=== PATIENT | male | born 1985 | race Caucasian/White ===

== ENCOUNTER 2025-06-10 15:35 | Emergency (ER) | payer OTHER, SELFPAY ==
[2025-06-10 15:43] VITALS: BP 132/73; PULSE 70; RESP 16; TEMP 36.9; O2SAT 100
--- NOTE | 2025-06-10 15:54 | ED_ITS ---
HPI - Male Genitourinary General Chief complaint: Urogenital-Male Stated complaint: Groin Pain Time Seen by Provider: 06/10/25 15:37 patient presents to the [facility] accompanied by spouse with complaints of right testicular pain that began over the last couple days. After lifting child this is more painful than it moves to a dull ache. Noted he did have a vasectomy in January of this year and has had some generalized soreness since then. Noted that he did wear the scrotal support and rested for the appropriate amount of time but has not had a follow-up for the continued soreness. Patient has been exercising and doing his normal activities since a couple days ago. Patient did that couple days ago he did go to this to this child and was picking them up and down several times. Denies any burning with urination, blood in urine, lower back pain, abdominal pain, nausea, vomiting, diarrhea, penile discharge, or concern for STDs. Related Data Allergies Allergy/AdvReac Type Severity Reaction Status Date / Time No Known Allergies Allergy Verified 06/10/25 15:42 Review of Systems Constitutional: Constitutional: Reports as per HPI, Denies chills, Denies fat igue, Denies fever(s) and Denies weakness Eyes: Eyes: Reports no additional eye complaints ENT: Reports system reviewed and no additional complaints, except as documented Cardiovascular: Cardiovascular: Reports no additional cardiovascular complaints Respiratory: Respiratory: Reports no additional respiratory complaints Gastrointestinal: Gastrointestinal: Reports as per HPI, Denies abdominal pain, Denies bloating, Denies diarrhea, Denies nausea and Denies vomiting Genitourinary: Genitourinary: Reports as per HPI, Denies hematuria, Denies oliguria, Denies genital lesions, Denies dysuria, Denies penile discharge, Reports testicular pain (right ), Denies urinary frequency and Denies urinary incontinence Musculoskeletal: Musculoskeletal: Reports as per HPI and Denies back pain Integumentary/Breasts: Skin/Breast: Reports as per HPI, Denies erythema and Denies rash Neurologic: Reports system reviewed and no additional complaints, except as documented Psychiatric: Psychiatric: Reports no additional psychiatric complaints Endocrine: Endocrine: Reports no additional endocrine complaints Hematologic/Lymphatic: Hematologic/Lymphatic: Reports no additional hematologic/lymphatic complaints Allergic/Immunologic: Allergic/Immunologic: Reports no additional allergic/immunologic complaints Exam Const: General: healthy appearing and no acute distress Nutritional Appearance: well nourished Limitations: no limitations Resp: Effort & Inspection: normal respiratory effort Auscultation: clear to auscultation bilaterally Cardio: Rate: regular rate Rhythm: regular rhythm GI: Inspection: non-distended GI Palp: Yes Soft to palpation, No Tenderness to palpation present (GI), No Guarding due to palpation present (GI), No Rigid due to palpation, No Hernia present and No Rebound tenderness present Auscultation: normal bowel sounds : General: Yes bladder normal to palpation and Yes no CVA tenderness Penis: Yes normal penis Scrotum: no scrotal swelling Testes: epididymal tenderness, no testicular swelling and no testicular tenderness Other: Cremaster reflex right normal spouse present for exam. Back/Spine/Pelvis: Back: no CVA tenderness Skin: General skin exam: normal color Rashes: no rashes Wounds: no wounds Neuro: General: patient oriented x3 Speech: normal speech Gait exam (Neuro): Normal gait present Psych: Mental Status: mental status grossly normal Affect: normal affect Attitude: cooperative Course Course Level of Care: Express Care Visit Vital Signs Vital signs: Vital Signs Temperature 98.4 F 06/10/25 15:43 Pulse Rate 70 06/10/25 15:43 Respiratory Rate 16 06/10/25 15:43 Blood Pressure 132/73 06/10/25 15:43 Pulse Oximetry 100 06/10/25 15:43 Oxygen Delivery Room Air 06/10/25 15:43 Temperature 98.4 F 06/10/25 15:43 Pulse Rate 70 06/10/25 15:43 Respiratory Rate 16 06/10/25 15:43 Blood Pressure 132/73 06/10/25 15:43 Pulse Oximetry 100 06/10/25 15:43 Oxygen Delivery Room Air 06/10/25 15:43 MDM - Male Genitourinary MDM Narrative Medical decision making narrative: on exam tenderness noted in for epididymis will start antibiotics for this and patient to follow-up with urologist to perform vasectomy The patient was evaluated by myself in the express care. History is obtained from patient who is an independent historian and physical exam was performed. Available medical records were reviewed at this time. Exam findings show no acute concerns or changes; patient is non-toxic appearing and is in no distress. Patient is appropriate for outpatient treatment and follow-up. I have evaluated and discussed social determinants of health with the patient that could potentially impact subsequent diagnosis and treatment plans. Differential diagnosis and treatment plan were discussed with the patient. Patient agrees with discussion and after shared medical decision making agrees with plan of care. All questions were answered to the patient's satisfaction. Differential Diagnosis Differential diagnosis: Likely urinary tract infection, urethritis, epididymitis, prostatitis and inguinal hernia Medical Records Attestation: I reviewed the patient's medical records. Discharge Plan Discharge Clinical Impression: Epididymitis Patient Disposition: Home Condition: Stable Instructions: Antibiotic Form, Epididymitis (ED), Scrotal Pain (ED) Additional Instructions: take the antibiotics as directed. May wear a scrotal support if this is more comfortable for you if you began to have significant pain or swelling in either testicle go to the emergency room for further evaluation of symptoms if the dull ache continues after the next few days on the antibiotic you do not get any relief follow-up with urologist who performed Your vasectomy Patient Language: Wolof Prescriptions: New doxycycline monohydrate 100 mg capsule 100 mg PO BID Qty: 28 0RF Follow-up/Referrals: PHYSICIAN,FINISHED [employer] [Primary Care Provider, Internal Medicine] Time of Disposition: 15:58
== END 2025-06-10 16:00 | disposition home or self-care (01) ==
PROVIDERS: Emergency Provider Nurse Practitioner Family
DX: N45.1 Epididymitis (principal); Z98.52 Vasectomy status
CPT/HCPCS: 99203; G0463